=== PATIENT | female | born 1985 | race American Indian/Alaskan Native ===

== ENCOUNTER 2020-06-12 16:10 | Emergency (ER) | payer SELFPAY ==
[2020-06-12 16:36] VITALS: BP 115/63
--- NOTE | 2020-06-12 20:13 | Emergency Department Report ---
ED Eye Problem HPI - General Chief complaint: Eye Problems Stated complaint: EYE PAIN Source: patient Mode of arrival: Ambulatory Limitations: No Limitations - History of Present Illness Initial comments: Patient is a 34 yo AA female with no past medical history who presents to the ED with c/o acute onset persistent severe left eye pain with swelling and matting as well as redness for the last 5 days. Patient states that on the last 2 days the right eye has also started having some mild pain and redness. Patient states that no one else has had similar symptoms at home. Patient denies fall, traumatic injury, headache, nasal and sinus congestion, cough, dizziness, chest pain or vision changes or sore throat and neck pain. MD chief complaint: eye pain (bilateral eye pain, redness, swelling and matting), eye redness (bilateral) -: Sudden, days(s) (5) Onset Description: sudden, awoke with symptoms Location: both eyes Place: home If Injury: none Eye Symptoms: burning, redness, pain, itching, discharge, photophobia Severity: severe Severity scale (0 -10): 7 If Pain, Quality: burning, aching Consistency: constant Context: recent uri Associated Symptoms: none Treatments Prior to Arrival: OTC eye drops - Related Data Patient Tetanus UTD: No Home Medications Medication Instructions Recorded Confirmed Last Taken Pnv with Ca,No.72/Iron/FA 1 tab PO DAILY 12/02/13 12/02/13 12/01/13 14:00 [ Plus Tablet] Previous Rx's Medication Instructions Recorded Last Taken Type Ferrous Sulfate [Feosol 325 MG tab] 325 mg PO BID #60 tablet 12/03/13 Unknown Rx HYDROcodone/APAP 5-325 [[place] 1 each PO Q6HR PRN #30 tablet 12/03/13 Unknown Rx 5/325] Ibuprofen [Motrin] 800 mg PO Q8H PRN #30 tablet 12/03/13 Unknown Rx Tdk780/Iron Fum/Folic/Docusate 1 each PO QDAY #30 tablet 12/03/13 Unknown Rx [ 19 Tablet] Gentamicin 0.3% Ophth Soln 1 drops OP Q4H #5 ml 06/12/20 Unknown Rx Ibuprofen [Motrin] 600 mg PO Q8H PRN #24 tablet 06/12/20 Unknown Rx Olopatadine HCl [Patanol 0.1%] 1 drop OP Q12H #5 ml 06/12/20 Unknown Rx Allergies Allergy/AdvReac Type Severity Reaction Status Date / Time No Known Allergies Allergy Verified 06/12/20 16:32 ED Review of Systems ROS: Stated complaint: EYE PAIN Other details as noted in HPI Constitutional: denies: chills, fever Eyes: eye pain (bilateral eye pain), eye discharge (Bilateral eye discharge). denies: vision change ENT: denies: ear pain, throat pain Respiratory: denies: cough, shortness of breath, wheezing Cardiovascular: denies: chest pain, palpitations Endocrine: no symptoms reported Gastrointestinal: denies: abdominal pain, nausea, diarrhea Genitourinary: denies: urgency, dysuria, discharge Musculoskeletal: denies: back pain, joint swelling, arthralgia Skin: denies: rash, lesions Neurological: denies: headache, weakness, paresthesias Psychiatric: denies: anxiety, depression Hematological/Lymphatic: denies: easy bleeding, easy bruising ED Past Medical Hx - Past Medical History Hx Hypertension: No Hx Congestive Heart Failure: No Hx Diabetes: No Hx Deep Vein Thrombosis: No Hx Renal Disease: No Hx Sickle Cell Disease: No Hx Seizures: No Hx Asthma: No Hx COPD: No Hx HIV: No - Social History Smoking Status: Never Smoker - Medications Home Medications: Home Medications Medication Instructions Recorded Confirmed Last Taken Type Pnv with Ca,No.72/Iron/FA 1 tab PO DAILY 12/02/13 12/02/13 12/01/13 14:00 History [ Plus Tablet] Ferrous Sulfate [Feosol 325 MG tab] 325 mg PO BID #60 tablet 12/03/13 Unknown Rx HYDROcodone/APAP 5-325 [[place] 1 each PO Q6HR PRN #30 tablet 12/03/13 Unknown Rx 5/325] Ibuprofen [Motrin] 800 mg PO Q8H PRN #30 tablet 12/03/13 Unknown Rx Ket291/Iron Fum/Folic/Docusate 1 each PO QDAY #30 tablet 12/03/13 Unknown Rx [ 19 Tablet] Gentamicin 0.3% Ophth Soln 1 drops OP Q4H #5 ml 06/12/20 Unknown Rx Ibuprofen [Motrin] 600 mg PO Q8H PRN #24 tablet 06/12/20 Unknown Rx Olopatadine HCl [Patanol 0.1%] 1 drop OP Q12H #5 ml 06/12/20 Unknown Rx ED Physical Exam - General Limitations: No Limitations General appearance: alert, in no apparent distress - Head Head exam: Present: atraumatic, normocephalic, normal inspection - Eye Eye exam: Present: normal appearance, PERRL, EOMI, other (Bilateral erythematous conjunctiva with eyelid swelling and pain) Pupils: Present: normal accommodation - ENT ENT exam: Present: normal exam, normal orophraynx, mucous membranes moist, TM's normal bilaterally, normal external ear exam - Neck Neck exam: Present: normal inspection, full ROM - Respiratory Respiratory exam: Present: normal lung sounds bilaterally. Absent: respiratory distress, wheezes, rales, rhonchi, chest wall tenderness, accessory muscle use, decreased breath sounds - Cardiovascular Cardiovascular Exam: Present: regular rate, normal rhythm, normal heart sounds. Absent: systolic murmur, diastolic murmur, rubs, gallop - GI/Abdominal GI/Abdominal exam: Present: soft, normal bowel sounds. Absent: tenderness, guarding, rebound, hyperactive bowel sounds, hypoactive bowel sounds, organomegaly - Extremities Exam Extremities exam: Present: normal inspection, full ROM, normal capillary refill - Back Exam Back exam: Present: normal inspection, full ROM. Absent: tenderness, CVA tenderness (R), CVA tenderness (L), muscle spasm, paraspinal tenderness, vertebral tenderness - Neurological Exam Neurological exam: Present: alert, oriented X3, CN II-XII intact, normal gait, reflexes normal - Psychiatric Psychiatric exam: Present: normal affect, normal mood - Skin Skin exam: Present: warm, dry, intact, normal color. Absent: rash ED Course Vital Signs 06/12/20 16:34 Temperature 98.9 F Pulse Rate 82 Respiratory 16 Rate Blood Pressure 115/63 O2 Sat by Pulse 100 Oximetry ED Medical Decision Making - Medical Decision Making This is a 34 yo AA female with no past medical history who presents to the ED with c/o acute onset persistent severe left eye pain with swelling and matting as well as redness for the last 5 days. Patient states that on the last 2 days the right eye has also started having some mild pain and redness. Patient states that no one else has had similar symptoms at home. In the ED, patient is alert and oriented x 3 and is in no acute distress. Patient's vision acuity is normal. Patient was discharged home on pain medications and antibiotic eye drops. Patient was discharged home and advised to follow up with her PCP in 5-7 days for reevaluation. Patient was advised to return to the ED immediately if symptoms get worse. - Differential Diagnosis Conjunctivitis; Eye pain; allergic conjunctivitis Critical care attestation.: If time is entered above; I have spent that time in minutes in the direct care of this critically ill patient, excluding procedure time. ED Disposition Clinical Impression: Pain around both eyes Acute conjunctivitis of both eyes Qualifiers: Acute conjunctivitis type: unspecified Qualified Code(s): H10.33 - Unspecified acute conjunctivitis, bilateral Disposition: TO HOME OR SELFCARE Is pt being admited?: No Does the pt Need Aspirin: No Condition: Stable Instructions: Bacterial Conjunctivitis, Adult, [id number] Additional Instructions: Apply the medication to the affected eyes as advised, take medications for pain as needed and follow up with your Primary Care Physician in 5-7 days for reevaluation. Return to the ED immediately if symptoms get worse. Prescriptions: Gentamicin 0.3% Ophth Soln 1 drops OP Q4H #5 ml Ibuprofen [Motrin] 600 mg PO Q8H PRN #24 tablet PRN Reason: Pain Olopatadine HCl [Patanol 0.1%] 1 drop OP Q12H #5 ml Referrals: [facility] [Provider Group] - 3-5 Days Time of Disposition: 20:15 Print Language: VIETNAMESE
== END 2020-06-12 20:35 | disposition home or self-care (01) ==
LOC: ED 16:10
DX: H10.33 Unspecified acute conjunctivitis, bilateral (principal); Z79.899 Other long term (current) drug therapy
CPT/HCPCS: 99281

== ENCOUNTER 2021-03-26 20:51 | Emergency (ER) | payer OTHER ==
[2021-03-26 21:31] VITALS: BP 123/73
[2021-03-26] MEDS ORDERED: LIDOCAINE (1%) 10 MG/1 ML VIAL 20 ML MDV INFILTRATI ONE (21:45)
[2021-03-26] MEDS ORDERED: ONDANSETRON 4 MG ODT TAB PO ONE (21:45)
[2021-03-26] MEDS ORDERED: IBUPROFEN 600 MG TAB PO ONE (21:45)
[2021-03-26] MEDS ORDERED: HYDROcodone/ACETAMINOPHEN 5-325 MG TAB PO ONE (21:45)
--- NOTE | 2021-03-26 22:38 | Emergency Department Report ---
Upper Extremity - HPI Chief Complaint: Wound/Laceration Stated Complaint: RT HAND FINGER LACERATION Upper Extremity: Right Hand (Pain), Right Index Finger (Laceration and pain), Right Middle Finger (Laceration and pain) Occurred When: Today Mechanism: Other (Hit hand against a glass snake cage in anger ) Severity: severe Symptoms: Yes Pain with Movement (right hand and fingers), Yes Limited Range of Movement (due to pain on right middle and index fingers), No Numbness, No Weakness, No Swelling, No Bruising/Ecchymosis, No Laceration or Abrasion (Extensive laceration of right index and middle fingers) Other History: Patient is a 35-year-old -[place] female with no past medical history who presents to the ED with complaint of acute onset painful bleeding right index and middle finger lacerations and right hand pain after she slammed her right hand in anger on a glass snake cage at home about 1 hour ago due to anger when having a verbal altercation with her . Patient admits that she had been drinking prior to this episode. Patient states that she is not up-to-date with her tetanus vaccinations. Patient states that the pain is worse with any active range of motion of the right index and middle fingers. Patient denies numbness and tingling or weakness of right hand, dizziness, syncope, nausea, vomiting, headache, chest pain or shortness of breath. ED Review of Systems ROS: Stated complaint: RT HAND FINGER LACERATION Other details as noted in HPI Constitutional: denies: chills, fever Eyes: denies: eye pain, eye discharge, vision change ENT: denies: ear pain, throat pain Respiratory: denies: cough, shortness of breath, wheezing Cardiovascular: denies: chest pain, palpitations Endocrine: no symptoms reported Gastrointestinal: denies: abdominal pain, nausea, diarrhea Genitourinary: denies: urgency, dysuria, discharge Musculoskeletal: arthralgia (Right hand, right middle and index finger pains), other (Right index and middle finger pains due to bleeding laceration wounds). denies: back pain, joint swelling Skin: other (Bleeding painful laceration wound on right index and middle fingers). denies: rash, lesions Neurological: denies: headache, weakness, paresthesias Psychiatric: denies: anxiety, depression Hematological/Lymphatic: denies: easy bleeding, easy bruising ED Past Medical Hx - Past Medical History Previous Medical History?: No Hx Hypertension: No Hx Congestive Heart Failure: No Hx Diabetes: No Hx Deep Vein Thrombosis: No Hx Renal Disease: No Hx Sickle Cell Disease: No Hx Seizures: No Hx Asthma: No Hx COPD: No Hx HIV: No - Surgical History Past Surgical History?: Yes Additional Surgical History: c section - Social History Smoking Status: Never Smoker - Medications Home Medications: Home Medications Medication Instructions Recorded Confirmed Last Taken Type Pnv with Ca,No.72/Iron/FA 1 tab PO DAILY 12/02/13 12/02/13 12/01/13 14:00 History [ Plus Tablet] Ferrous Sulfate [Feosol 325 MG tab] 325 mg PO BID #60 tablet 12/03/13 Unknown Rx HYDROcodone/APAP 5-325 [[place] 1 each PO Q6HR PRN #30 tablet 12/03/13 Unknown Rx 5/325] Ibuprofen [Motrin] 800 mg PO Q8H PRN #30 tablet 12/03/13 Unknown Rx Vqb551/Iron Fum/Folic/Docusate 1 each PO QDAY #30 tablet 12/03/13 Unknown Rx [ 19 Tablet] Gentamicin 0.3% Ophth Soln 1 drops OP Q4H #5 ml 06/12/20 Unknown Rx Ibuprofen [Motrin] 600 mg PO Q8H PRN #24 tablet 06/12/20 Unknown Rx Olopatadine HCl [Patanol 0.1%] 1 drop OP Q12H #5 ml 06/12/20 Unknown Rx Ibuprofen [Motrin 800 MG tab] 800 mg PO Q8HR PRN #30 tablet 03/26/21 Unknown Rx cephALEXin [Keflex] 500 mg PO Q8HR #30 cap 03/26/21 Unknown Rx Upper Extremity Exam - Exam General: Vital signs noted. No distress. Alert and acting appropriately. Head and Torso: No HEENT Abnormality, No Neck Tenderness, No Chest/Lungs Abnormality, No Abdominal Tenderness, No Back Tenderness Shoulder Exam: Yes Normal Range of Motion in Shoulder, No Shoulder Tenderness, No Clavicle Tenderness, No Shoulder Deformity, No AC Joint Tenderness Arm Exam: No Arm/Humerus Tenderness, No Arm Deformity Elbow: Yes Normal Range of Motion in Elbow, No Elbow Tenderness, No Elbow Deformity Forearm: No Forearm Tenderness, No Forearm Deformity, No Pain with Pronation, No Pain with Supination Wrist: Yes Normal ROM in Wrist, No Wrist Tenderness, No Wrist Deformity, No Snuffbox Tenderness, No Pain with Axial Thumb Compression Hand: Yes Hand Tenderness (Palpable right hand tenderness), Yes Digit Tenderness (Palpable right index and middle finger tenderness due to bleeding laceration wounds), Yes Normal ROM in Digit(s), No Hand Deformity, No Digit(s) Deformity, No Tendon Dysfunction CMS Exam: Yes Broken Skin (Bleeding laceration wounds on right index and middle fingers), Yes Normal Distal Pulses, Yes Normal Capillary Refill, Yes Normal Distal Sensation ED Course Vital Signs 03/26/21 21:29 Temperature 97.7 F Pulse Rate 74 Respiratory 18 Rate Blood Pressure 123/73 O2 Sat by Pulse 100 Oximetry - Laceration /Wound Repair Right Finger Wound Location: upper extremity (Right index finger laceration on palmar side) Wound Length (cm): 5 Wound's Depth, Shape: superficial, linear Wound Explored: contaminated Irrigated w/ Saline (ccs): 250 Betadine Prep?: Yes Anesthesia: 1% Lidocaine Volume Anesthetic (ccs): 7 Wound Debrided: extensive Wound Repaired With: sutures Suture Size/Type: 4:0, proline Number of Sutures: 10 Layer Closure?: No Sterile Dressing Applied?: No Progress: Patient tolerated procedure well. Right Hand Wound Location: upper extremity (Right middle finger laceration) Wound Length (cm): 7 Wound's Depth, Shape: superficial, linear Wound Explored: contaminated Irrigated w/ Saline (ccs): 300 Betadine Prep?: Yes Anesthesia: 1% Lidocaine Volume Anesthetic (ccs): 5 Wound Debrided: extensive Wound Repaired With: sutures Suture Size/Type: 4:0, proline Number of Sutures: 14 Layer Closure?: No Sterile Dressing Applied?: No Progress: Patient tolerated procedure well. ED Medical Decision Making - Radiology Data Radiology results: report reviewed, image reviewed [facility] [address] [place] [address] XRay Report Signed Patient: ISAÍAS MILLER MR#: [id number] : 1985 Acct:[id number] Age/Sex: 35 / F ADM Date: 03/26/21 Loc: ED Attending Dr: Ordering Physician: TASH SMITH Date of Service: 03/26/21 Procedure(s): XR hand 3+V RT Accession Number(s): [id number] cc: TASH SMITH Fluoro Time In Minutes: RIGHT HAND 3 VIEWS INDICATION: Traumatic injury - r/o foreign bodies fingers. COMPARISON: No relevant prior imaging study available. FINDINGS: No acute skeletal abnormality. No radiodense foreign bodies in the soft tissues. IMPRESSION: 1. No acute findings. Signer Name: Yang Li MD Signed: 03/26/2021 10:40 PM Workstation Name: [id number] Transcribed By: TONO Dictated By: Yang Li MD Electronically Authenticated By: Yang Li MD Signed Date/Time: 03/26/212239 DD/ 39 TD/TT: - Medical Decision Making This is a 35-year-old -[place] female with no past medical history who presents to the ED with complaint of acute onset painful bleeding right index and middle finger lacerations and right hand pain after she slammed her right hand in anger on a glass snake cage at home about 1 hour ago due to anger when having a verbal altercation with her . Patient admits that she had been drinking prior to this episode. Patient states that she is not up-to-date with her tetanus vaccinations. Patient states that the pain is worse with any active range of motion of the right index and middle fingers. In the ED, patient is alert and oriented x3 and is not in any distress. Patient was treated for pain in the ED and also received booster tetanus vaccinations. Right hand x-ray showed no acute fractures or subluxations or presence of any foreign bodies. The right index and middle finger laceration wounds were cleaned extensively with normal saline and Betadine solutions, and sutured per protocol after digital block with lidocaine 1% solution. Patient tolerated the procedure well. The wound was then dressed appropriately and the patient was discharged home on pain medications and prophylactic antibiotics and was advised to follow-up with her primary care physician in 7 to 10 days for reevaluation or return to the ED immediately if symptoms get worse. Patient was advised return to the ED or to her primary care physician in 12 to 14 days for suture removal. - Differential Diagnosis Hand contusion; finger lacerations; puncture wounds; finger fractures Critical care attestation.: If time is entered above; I have spent that time in minutes in the direct care of this critically ill patient, excluding procedure time. ED Disposition Clinical Impression: Laceration of right index finger w/o foreign body w/o damage to nail Qualifiers: Encounter type: initial encounter Qualified Code(s): S61.210A - Laceration without foreign body of right index finger without damage to nail, initial encounter Laceration of right middle finger w/o foreign body w/o damage to nail Qualifiers: Encounter type: initial encounter Qualified Code(s): S61.212A - Laceration without foreign body of right middle finger without damage to nail, initial encounter Contusion of right hand including fingers Qualifiers: Encounter type: initial encounter Qualified Code(s): S60.221A - Contusion of right hand, initial encounter Disposition: HOME / SELF CARE / HOMELESS Is pt being admited?: No Does the pt Need Aspirin: No Condition: Stable Instructions: Hand Contusion, [id number], Laceration Care, Adult, [id number], Sutured Wound Care, [id number] Additional Instructions: Take medication with food, drink plenty of fluids and follow-up with your primary care physician in 7 to 10 days for reevaluation. Return to the ED immed iately if symptoms get worse. Otherwise return to the ED or to your primary care physician in 12 to 14 days for suture removal Prescriptions: cephALEXin [Keflex] 500 mg PO Q8HR #30 cap Ibuprofen [Motrin 800 MG tab] 800 mg PO Q8HR PRN #30 tablet PRN Reason: Severe pain Referrals: [facility] [Provider Group] - 7-10 days Time of Disposition: 00:26 Print Language: BOLIVIAN
--- NOTE | 2021-03-26 22:45 | XRay Report ---
RIGHT HAND 3 VIEWS INDICATION: Traumatic injury - r/o foreign bodies fingers. COMPARISON: No relevant prior imaging study available. FINDINGS: No acute skeletal abnormality. No radiodense foreign bodies in the soft tissues. IMPRESSION: 1. No acute findings. Signer Name: Yang Li MD Signed: 03/26/2021 10:40 PM Workstation Name: [id number]
[2021-03-26] MEDS ORDERED: SODIUM CHLORIDE IRRI 500 ML 500 ML IR ONE (23:14)
[2021-03-27] MEDS ORDERED: NEOMY 3.5 MG/BACIT 400 UNITS/POLY B 5000 UNITS/GM OINT PACKET TP ONE (00:33)
[2021-03-27] MEDS ORDERED: TETANUS,DIPH,PERTUSS(ACELL) VACCINE 0.5 ML SYRINGE IM ONE (00:39)
== END 2021-03-27 01:30 | disposition home or self-care (01) ==
LOC: ED 20:51
DX: S61.210A Laceration without foreign body of right index finger without damage to nail, initial encounter (principal); S61.212A Laceration without foreign body of right middle finger without damage to nail, initial encounter; S60.221A Contusion of right hand, initial encounter; Z98.890 Other specified postprocedural states; W22.8XXA Striking against or struck by other objects, initial encounter; Y93.89 Activity, other specified; Y92.89 Other specified places as the place of occurrence of the external cause; Y99.8 Other external cause status
CPT/HCPCS: 12004; 73130; 90715; 99283; A6250; Q0162

== ENCOUNTER 2021-04-20 15:31 | Emergency (ER) | payer OTHER ==
[2021-04-20] MEDS ORDERED: IBUPROFEN 800 MG TAB ONE (15:56)
--- NOTE | 2021-04-20 16:11 | Emergency Department Report ---
ED General Adult HPI - General Chief complaint: Medical Clearance Stated complaint: Stitches Removal Time Seen by Provider: 04/20/21 15:41 Source: patient Mode of arrival: Ambulatory Limitations: No Limitations - History of Present Illness Initial comments: 35-year-old -[place] female patient presents today for suture removal. Patient had sutures placed here on 03/26/2021 after cutting herself with broken glass. The sutures are in the right third and fourth digit. Patient states there has been pain and swelling to both digits worse in the middle finger. She denies any fever/chills/sweats. She admits to difficulty bending her fingers fully to make a fist. Patient states she did not take the Keflex that was prescribed, however her primary care provider placed her on antibiotics that she took for a few days and then discontinued. Patient rates her pain as a 6/10 in severity. She denies any past medical history including immunocompromising diseases Severity scale (0 -10): 4 - Related Data Home Medications Medication Instructions Recorded Confirmed Last Taken Pnv with Ca,No.72/Iron/FA 1 tab PO DAILY 12/02/13 12/02/13 12/01/13 14:00 [ Plus Tablet] Previous Rx's Medication Instructions Recorded Last Taken Type Ferrous Sulfate [Feosol 325 MG tab] 325 mg PO BID #60 tablet 12/03/13 Unknown Rx HYDROcodone/APAP 5-325 [[place] 1 each PO Q6HR PRN #30 tablet 12/03/13 Unknown Rx 5/325] Ibuprofen [Motrin] 800 mg PO Q8H PRN #30 tablet 12/03/13 Unknown Rx Ltz768/Iron Fum/Folic/Docusate 1 each PO QDAY #30 tablet 12/03/13 Unknown Rx [ 19 Tablet] Gentamicin 0.3% Ophth Soln 1 drops OP Q4H #5 ml 06/12/20 Unknown Rx Ibuprofen [Motrin] 600 mg PO Q8H PRN #24 tablet 06/12/20 Unknown Rx Olopatadine HCl [Patanol 0.1%] 1 drop OP Q12H #5 ml 06/12/20 Unknown Rx Ibuprofen [Motrin 800 MG tab] 800 mg PO Q8HR PRN #30 tablet 03/26/21 Unknown Rx cephALEXin [Keflex] 500 mg PO Q8HR #30 cap 03/26/21 Unknown Rx Clindamycin [Clindamycin CAP] 300 mg PO Q6H 10 Days #40 capsule 04/20/21 Unknown Rx Ibuprofen [Motrin 800 MG tab] 800 mg PO Q8HR PRN #20 tablet 04/20/21 Unknown Rx Mupirocin [Bactroban 2% OINT] 1 applic TP TID 10 Days #1 tube 04/20/21 Unknown Rx Allergies Allergy/AdvReac Type Severity Reaction Status Date / Time No Known Allergies Allergy Verified 03/26/21 23:16 ED Review of Systems ROS: Stated complaint: Stitches Removal Other details as noted in HPI Constitutional: denies: chills, diaphoresis, fever, malaise, weakness Musculoskeletal: joint swelling, arthralgia Skin: denies: change in color Neurological: numbness (right middle finger) ED Past Medical Hx - Past Medical History Hx Hypertension: No Hx Congestive Heart Failure: No Hx Diabetes: No Hx Deep Vein Thrombosis: No Hx Renal Disease: No Hx Sickle Cell Disease: No Hx Seizures: No Hx Asthma: No Hx COPD: No Hx HIV: No - Surgical History Additional Surgical History: c section - Social History Smoking Status: Never Smoker - Medications Home Medications: Home Medications Medication Instructions Recorded Confirmed Last Taken Type Pnv with Ca,No.72/Iron/FA 1 tab PO DAILY 12/02/13 12/02/13 12/01/13 14:00 History [ Plus Tablet] Ferrous Sulfate [Feosol 325 MG tab] 325 mg PO BID #60 tablet 12/03/13 Unknown Rx HYDROcodone/APAP 5-325 [[place] 1 each PO Q6HR PRN #30 tablet 12/03/13 Unknown Rx 5/325] Ibuprofen [Motrin] 800 mg PO Q8H PRN #30 tablet 12/03/13 Unknown Rx Svx998/Iron Fum/Folic/Docusate 1 each PO QDAY #30 tablet 12/03/13 Unknown Rx [ 19 Tablet] Gentamicin 0.3% Ophth Soln 1 drops OP Q4H #5 ml 06/12/20 Unknown Rx Ibuprofen [Motrin] 600 mg PO Q8H PRN #24 tablet 06/12/20 Unknown Rx Olopatadine HCl [Patanol 0.1%] 1 drop OP Q12H #5 ml 06/12/20 Unknown Rx Ibuprofen [Motrin 800 MG tab] 800 mg PO Q8HR PRN #30 tablet 10/29/21 Unknown Rx cephALEXin [Keflex] 500 mg PO Q8HR #30 cap 03/26/21 Unknown Rx Clindamycin [Clindamycin CAP] 300 mg PO Q6H 10 Days #40 capsule 04/20/21 Unknown Rx Ibuprofen [Motrin 800 MG tab] 800 mg PO Q8HR PRN #20 tablet 04/20/21 Unknown Rx Mupirocin [Bactroban 2% OINT] 1 applic TP TID 10 Days #1 tube 04/20/21 Unknown Rx ED Physical Exam - General Limitations: No Limitations General appearance: alert, in no apparent distress - Head Head exam: Present: atraumatic, normocephalic - Eye Eye exam: Present: normal appearance - Respiratory Respiratory exam: Absent: respiratory distress - Cardiovascular Cardiovascular Exam: Present: regular rate - Extremities Exam Extremities exam: Present: other (ttp noted to right third digit and fourth MCP joint; moderate swelling noted to the third digit; sutures in place, active purulent drainage noted with manipulation of wound with wound dehiscence; no purulent drainage noted from fourth digit wound, sutures are in place) - Neurological Exam Neurological exam: Present: alert, oriented X3 - Psychiatric Psychiatric exam: Present: normal affect, normal mood - Skin Skin exam: Present: warm, dry ED Course Vital Signs 04/20/21 04/20/21 15:35 16:15 Temperature 98.5 F Pulse Rate 103 H Respiratory 16 Rate Blood Pressure 135/82 [Right] O2 Sat by Pulse 100 Oximetry - Procedure Description Procedures done: 24 simple sutures removed from right third and fourth digits. There is wound dehiscence in both digits, worse in the third digit. Third digit has moderate purulent drainage; patient having difficulty fully flexing fingers, however there is no tenderness with passive extension; normal perfusion noted bilaterally of the fingers; patient states some numbness to the third digit; no significant erythema is noted ED Medical Decision Making - Radiology Data Radiology results: report reviewed XR hand 3+V RT INDICATION: wound infection to 3rd and 4th digits. COMPARISON: X-rays on 03/26/2021 FINDINGS: There is mild soft tissue swelling in the third finger. There are no radiopaque foreign bodies or soft tissue gas. Underlying bones appear normal. - Medical Decision Making 35-year-old -[place] female patient presents today for suture removal. Patient had sutures placed here on 03/26/2021 after cutting herself with broken glass. The sutures are in the right third and fourth digit. Patient states there has been pain and swelling to both digits worse in the middle finger. She denies any fever/chills/sweats. She admits to difficulty bending her fingers fully to make a fist. Patient states she did not take the Keflex that was prescribed, however her primary care provider placed her on antibiotics that she took for a few days and then discontinued. Patient rates her pain as a 6/10 in severity. She denies any past medical history including immunocompromising diseases Wound infection with dehiscence noted on exam worse in third digit. Moderate purulent drainage expressed from third digit. X-rays negative for any acute bony abnormalities or gas in wound. We will treat for wound infection with clindamycin and mupirocin. Wounds dressed with Neosporin sterile dressing. Patient to follow-up with her primary care doctor for wound recheck within 3 to 4 days. Discussed in detail signs and symptoms that should prompt immediate return to the ED with patient who verbalizes understanding. She is well- appearing, her vitals are within normal limits, she is stable for discharge home. Critical care attestation.: If time is entered above; I have spent that time in minutes in the direct care of this critically ill patient, excluding procedure time. ED Disposition Clinical Impression: Wound infection Disposition: 01 HOME / SELF CARE / HOMELESS Is pt being admited?: No Condition: Stable Instructions: Wound Infection Prescriptions: Mupirocin [Bactroban 2% OINT] 1 applic TP TID 10 Days #1 tube Clindamycin [Clindamycin CAP] 300 mg PO Q6H 10 Days #40 capsule Ibuprofen [Motrin 800 MG tab] 800 mg PO Q8HR PRN #20 tablet PRN Reason: pain Referrals: ZEYNEP MOURA MD [Primary Care Provider] - 3-5 Days
[2021-04-20] MEDS ORDERED: NEOMY 3.5 MG/BACIT 400 UNITS/POLY B 5000 UNITS/GM OINT PACKET TP STA (16:44)
--- NOTE | 2021-04-20 16:48 | XRay Report ---
XR hand 3+V RT INDICATION: wound infection to 3rd and 4th digits. COMPARISON: X-rays on 03/26/2021 FINDINGS: There is mild soft tissue swelling in the third finger. There are no radiopaque foreign bodies or sof t tissue gas. Underlying bones appear normal. Signer Name: Neo Oneal MD Signed: 04/20/2021 4:44 PM Workstation Name: [id number] (powering [employer])[id number]
[2021-04-20 17:39] VITALS: BP 113/74
== END 2021-04-20 17:42 | disposition home or self-care (01) ==
LOC: ED 15:31
DX: L08.89 Other specified local infections of the skin and subcutaneous tissue (principal); Z98.890 Other specified postprocedural states; Z79.899 Other long term (current) drug therapy
CPT/HCPCS: 99283